=== PATIENT | female | born 1975 | race Caucasian/White ===

== ENCOUNTER 2016-10-05 19:48 | Emergency (ER) | payer OTHER ==
[~2016-10-05] VITALS: Ht 167.6 cm; Wt 122.5 kg
[2016-10-05] MEDS ORDERED: FIORCAP3 PO (20:06)
[2016-10-05] MEDS ORDERED: LORA10CA PO (20:06)
[2016-10-05] MEDS ORDERED: ASPI32ECTA PO (20:06)
[2016-10-05] MEDS ORDERED: VITA2000 PO (20:06)
[2016-10-05] MEDS ORDERED: DULO1CAP PO (20:06)
[2016-10-05] MEDS ORDERED: NS 1,000 ML IV ONE (21:15)
[2016-10-05] MEDS ORDERED: METOCLOPRAMIDE INJ 10MG/2ML VIAL (J2765) IV ONE (21:15)
--- NOTE | 2016-10-05 21:50 | REPUSA ---
CLINICAL INDICATION: Altered mental status COMPARISON: None TECHNIQUE: Multiple axial images were obtained without contrast from the skull vertex to C1. FINDINGS: No acute intracranial hemorrhage or evidence of acute territorial infarct. There are paravertebral wh ite matter lucencies slightly more prominent adjacent to the frontal horns and greater on right on ax ial CT 14. No suspicious intra-axial or extraction fluid collection, midline shift, or hydrocephalus. Posterior Fossa: Unremarkable. Paranasal sinuses and mastoid air cells are well pneumatized. Osseous structures, soft tissues, and, orbital compartments, and inner ear cavities appear unremarkab le. IMPRESSION: No acute intracranial hemorrhage or evidence of acute territorial infarct. There are periventricular white matter lucencies which may be secondary to prior infarcts or small vessel ischemia although wou ld be atypical given patient's age. Alternative etiologies may include sequelae of chronic migraines, hypertensive crises, or vasculitis. If there are persistent symptoms follow-up MRI brain without and with intravenous contrast may be helpful to exclude a more aggressive white matter process.
[2016-10-05 21:59] LABS: BASO # 0.1 K/mm3 (0.0-0.2); BASO % 0.6 % (0.0-1.0); EOS # 0.2 K/mm3 (0.0-0.50); EOS % 1.8 % (0.0-3.0); LARGE UNSTAINED CELL # 0.1 K/mm3 (0.0-0.4); LARGE UNSTAINED CELL % 1.1 % (0.0-4.0); LYMPH # 2.5 K/mm3 (1.5-4.5); LYMPH % 23.4 % (24.0-44.0); MEAN CORPUSCULAR HGB CONC 33.5 g/dl (32.0-36.5); MEAN CORPUSCULAR VOLUME 89.8 fl (80.0-96.0); MONO # 0.4 K/mm3 (0.0-0.8); MONO % 3.8 % (0.0-5.0); NEUTROPHILS % 69.3 % (36.0-66.0); PLATELET COUNT, AUTOMATED 282 k/mm3 (150-450); RED CELL DISTRIBUTION WIDTH 12.4 % (11.5-14.5); WHITE BLOOD COUNT 10.1 K/mm3 (4.0-10.0)
[2016-10-05 22:09] LABS: INR 0.96
[2016-10-05 22:23] LABS: ALBUMIN 4.1 GM/DL (3.2-5.2); ALBUMIN/GLOBULIN RATIO 1.11 (1.00-1.93); ALKALINE PHOSPHATASE 115 U/L (45-117); ALT/SGPT 18 U/L (12-78); ANION GAP 9 MEQ/L (8-16); AST/SGOT 9 U/L (15-37); BILIRUBIN,DIRECT < 0.1 MG/DL (0.0-0.2); BILIRUBIN,TOTAL 0.2 MG/DL (0.2-1.0); BLOOD UREA NITROGEN 19 MG/DL (7-18); CARBON DIOXIDE LEVEL 27 MEQ/L (21-32); CHLORIDE LEVEL 104 MEQ/L (98-107); CREATININE FOR GFR 0.85 MG/DL (0.55-1.02); GLOMERULAR FILTRATION RATE > 60.0 (>58); GLUCOSE, FASTING 110 MG/DL (70-105); POTASSIUM SERUM 4.1 MEQ/L (3.5-5.1); SODIUM LEVEL 140 MEQ/L (136-145); TOTAL PROTEIN 7.8 GM/DL (6.4-8.2)
[2016-10-05] MEDS ORDERED: REGL10TA6 PO (23:37)
[2016-10-05 23:43] VITALS: BP 140/89
== END 2016-10-05 23:56 | disposition home or self-care (01) ==
LOC: M ED 21:00
DX: G60.9 Hereditary and idiopathic neuropathy, unspecified (principal); R51 Headache; Z79.82 Long term (current) use of aspirin; Z79.899 Other long term (current) drug therapy; F32.9 Major depressive disorder, single episode, unspecified
CPT/HCPCS: 36415; 70450; 80048; 80076; 82550; 82553; 83605; 84443; 85025; 85610; 96374; 99282; J2765

== ENCOUNTER → 2016-12-21 | Outpatient (REF) | payer OTHER ==
[~2016-12-21] MED LIST: ASPI325T24 PO; DULO1CAP PO; FIORCAP3 PO; LORA10CA PO; REGL10TA6 PO; VITA2000 PO
[2016-12-21 13:37] LABS: BASO % 0.5 % (0.0-1.0); EOS # 0.1 K/mm3 (0.0-0.50); EOS % 1.3 % (0.0-3.0); LARGE UNSTAINED CELL # 0.1 K/mm3 (0.0-0.4); LARGE UNSTAINED CELL % 1.2 % (0.0-4.0); LYMPH # 2.1 K/mm3 (1.5-4.5); LYMPH % 24.7 % (24.0-44.0); MEAN CORPUSCULAR HEMOGLOBIN 30.7 pg (27.0-33.0); MEAN CORPUSCULAR HGB CONC 33.5 g/dl (32.0-36.5); MEAN CORPUSCULAR VOLUME 91.4 fl (80.0-96.0); MONO # 0.2 K/mm3 (0.0-0.8); MONO % 2.8 % (0.0-5.0); NEUTROPHILS # 5.7 K/mm3 (1.8-7.7); NEUTROPHILS % 69.5 % (36.0-66.0); PLATELET COUNT, AUTOMATED 229 k/mm3 (150-450); RED CELL DISTRIBUTION WIDTH 12.1 % (11.5-14.5); WHITE BLOOD COUNT 8.2 K/mm3 (4.0-10.0)
[2016-12-21 14:06] LABS: ALBUMIN 3.9 GM/DL (3.2-5.2); ALBUMIN/GLOBULIN RATIO 1.18 (1.00-1.93); ALKALINE PHOSPHATASE 90 U/L (45-117); ALT/SGPT 22 U/L (12-78); ANION GAP 5 MEQ/L (8-16); AST/SGOT 14 U/L (15-37); BILIRUBIN,TOTAL 0.3 MG/DL (0.2-1.0); BLOOD UREA NITROGEN 8 MG/DL (7-18); CALCIUM LEVEL 8.8 MG/DL (8.5-10.1); CARBON DIOXIDE LEVEL 27 MEQ/L (21-32); CHLORIDE LEVEL 106 MEQ/L (98-107); CREATININE FOR GFR 0.79 MG/DL (0.55-1.02); GLOMERULAR FILTRATION RATE > 60.0 (>58); GLUCOSE, FASTING 88 MG/DL (70-105); POTASSIUM SERUM 4.6 MEQ/L (3.5-5.1); SODIUM LEVEL 138 MEQ/L (136-145); TOTAL PROTEIN 7.2 GM/DL (6.4-8.2)
[2016-12-21 14:14] LABS: ERYTHROCYTE SEDIMENTATION RATE 16 mm/hr (0-20)
== END ==
LOC: M LABNEURO 13:20
PROVIDERS: ATTEND Psychiatry & Neurology Neurology
DX: R51 Headache (principal)

== ENCOUNTER → 2020-09-01 | Outpatient (CLI) | payer OTHER ==
[~2020-09-01] MED LIST changes: +ASPI-255 PO; -ASPI325T24 PO; -DULO1CAP PO; +DULO1CAP4 PO
[2020-09-01 11:29] LABS: BASO # 0.1 10^3/uL (0.0-0.2); BASO % 0.8 % (0.0-1.0); EOS # 0.1 10^3/uL (0.0-0.5); EOS % 1.7 % (0.0-3.0); HEMATOCRIT 41.4 % (36.0-47.0); HEMOGLOBIN 13.8 g/dl (12.0-15.5); LYMPH # 1.9 10^3/uL (1.5-5.0); LYMPH % 26.7 % (24.0-44.0); MEAN CORPUSCULAR HEMOGLOBIN 31.2 pg (27.0-33.0); MEAN CORPUSCULAR HGB CONC 33.3 g/dl (32.0-36.5); MEAN CORPUSCULAR VOLUME 93.7 fl (80.0-96.0); MONO # 0.4 10^3/uL (0.0-0.8); NEUTROPHILS # 4.7 10^3/uL (1.5-8.5); NEUTROPHILS % 65.5 % (36.0-66.0); PLATELET COUNT, AUTOMATED 257 10^3/uL (150-450); RED BLOOD COUNT 4.42 10^6/uL (4.00-5.40); WHITE BLOOD COUNT 7.2 10^3/uL (4.0-10.0)
[2020-09-01 12:07] LABS: ALBUMIN 4.1 GM/DL (3.2-5.2); ALT/SGPT 31 U/L (12-78); BILIRUBIN,TOTAL 0.3 MG/DL (0.2-1.0); BLOOD UREA NITROGEN 22 MG/DL (7-18); CALCIUM LEVEL 9.3 MG/DL (8.5-10.1); CARBON DIOXIDE LEVEL 27 MEQ/L (21-32); CHLORIDE LEVEL 106 MEQ/L (98-107); CREATININE FOR GFR 0.77 MG/DL (0.55-1.30); GLOMERULAR FILTRATION RATE > 60.0 (>58); GLUCOSE, FASTING 103 MG/DL (70-100); POTASSIUM SERUM 4.2 MEQ/L (3.5-5.1); SODIUM LEVEL 139 MEQ/L (136-145); THYROID STIMULATING HORMONE 0.934 uIU/ML (0.358-3.740); TOTAL PROTEIN 7.4 GM/DL (6.4-8.2)
[2020-09-01 12:14] LABS: TOTAL 25(OH) VITAMIN D 24.8 NG/ML (30.0-100.0)
[2020-09-01 12:16] LABS: FOLATE > 24.0 NG/ML (>5.4); VITAMIN B12 LEVEL 652 PG/ML (247-911)
== END ==
LOC: M LAB 10:20
PROVIDERS: ATTEND Physician Assistant Medical
DX: R51.9 Headache, unspecified (principal); R53.83 Other fatigue; R63.5 Abnormal weight gain

== ENCOUNTER 2020-10-05 19:44 | Emergency (ER) | payer OTHER ==
[~2020-10-05] VITALS: Ht 167.6 cm; Wt 126.1 kg
[2020-10-05] MEDS ORDERED: ZONI50CA11 PO (19:56)
[2020-10-05] MEDS ORDERED: DULO1CAP6 PO (19:56)
[2020-10-05] MEDS ORDERED: LR 1,000 ML IV ONE (20:40)
--- NOTE | 2020-10-05 20:42 | ECGEPIP ---
[facility] - ED Test Date: 2020-10-05 Pat Name: RHONDA TRUONG Department: Room: - Gender: Female Isotope Technician: Dylan CLIFFORD : 1975 Requested By: LUIS ALBERTO WALKER Order Number: [id number] Reading MD: Michael Fletcher Measurements Intervals [place] Rate: 95 P: 45 TX: 178 QRS: 22 QRSD: 68 T: 16 QT: 348 QTc: 437 Interpretive Statements Normal sinus rhythm INCOMPLETE RIGHT BUNDLE BRANCH BLOCK Nonspecific ST and T wave abnormality NO PRIORS FOR COMPARISON Electronically Signed on 10-05-2020 20:42:02 EDT by Michael Fletcher
--- NOTE | 2020-10-05 21:07 | REPVR ---
PROCEDURE INFORMATION: Exam: XR Chest Exam date and time: 10/05/2020 8:05 PM Age: 45 years old Clinical indication: Chest pain; Type not specified TECHNIQUE: Imaging protocol: XR of the chest. Views: 1 view. COMPARISON: No relevant prior studies available. FINDINGS: Lungs: Unremarkable. No consolidation. Pleural spaces: Unremarkable. No pleural effusion. No pneumothorax. Heart/Mediastinum: Unremarkable. No cardiomegaly. Bones/joints: Unremarkable. IMPRESSION: No acute findings. Electronically signed by: Deacon Obrien On 10/05/2020 21:06:55 PM
[2020-10-05] MEDS ORDERED: LORazepam 2 MG/ML VIAL IV STA (21:21)
[2020-10-05 21:22] LABS: ALBUMIN 3.9 GM/DL (3.2-5.2); ALT/SGPT 22 U/L (12-78); BILIRUBIN,DIRECT < 0.1 MG/DL (0.0-0.2); BILIRUBIN,TOTAL 0.1 MG/DL (0.2-1.0); BLOOD UREA NITROGEN 15 MG/DL (7-18); CALCIUM LEVEL 9.3 MG/DL (8.5-10.1); CARBON DIOXIDE LEVEL 25 MEQ/L (21-32); CHLORIDE LEVEL 105 MEQ/L (98-107); CK-MB VALUE MASS < 1.0 NG/ML (<3.6); CPK CREATINE PHOSPHOKINASE 87 U/L (26-192); CREATININE FOR GFR 0.81 MG/DL (0.55-1.30); FREE T4 0.85 NG/DL (0.76-1.46); GLOMERULAR FILTRATION RATE > 60.0 (>58); GLUCOSE, FASTING 113 MG/DL (70-100); LIPASE 138 U/L (73-393); MAGNESIUM LEVEL 1.8 MG/DL (1.8-2.4); MB/CK RELATIVE INDEX 1.15 (< OR =4); POTASSIUM SERUM 3.8 MEQ/L (3.5-5.1); SODIUM LEVEL 139 MEQ/L (136-145); TOTAL PROTEIN 7.5 GM/DL (6.4-8.2); TROPONIN I < 0.02 NG/ML (< 0.10)
[2020-10-05 21:48] LABS: BASO # 0.1 10^3/uL (0.0-0.2); BASO % 0.8 % (0.0-1.0); EOS # 0.2 10^3/uL (0.0-0.5); EOS % 1.8 % (0.0-3.0); HEMATOCRIT 41.6 % (36.0-47.0); HEMOGLOBIN 13.6 g/dl (12.0-15.5); LYMPH # 3.4 10^3/uL (1.5-5.0); LYMPH % 27.9 % (24.0-44.0); MEAN CORPUSCULAR HEMOGLOBIN 30.8 pg (27.0-33.0); MEAN CORPUSCULAR HGB CONC 32.7 g/dl (32.0-36.5); MEAN CORPUSCULAR VOLUME 94.1 fl (80.0-96.0); MONO # 0.5 10^3/uL (0.0-0.8); MONO % 4.3 % (2.0-8.0); NEUTROPHILS # 7.8 10^3/uL (1.5-8.5); NEUTROPHILS % 64.9 % (36.0-66.0); PLATELET COUNT, AUTOMATED 270 10^3/uL (150-450); RED BLOOD COUNT 4.42 10^6/uL (4.00-5.40)
--- NOTE | 2020-10-05 22:05 | REPVR ---
PROCEDURE INFORMATION: Exam: MR Head Without Contrast Exam date and time: 10/05/2020 8:46 PM Age: 45 years old Clinical indication: Dizziness; Additional info: Vertiginous dizziness/ history of cadasil TECHNIQUE: Imaging protocol: MR of the head without contrast. COMPARISON: CT Head without contrast 10/05/2016 9:16 PM FINDINGS: Brain: Multiple foci of T2 lengthening are demonstrated in the subcortical, periventricular and centrum semiovale white matter consistent with reported history of CADASIL. No evidence of acute ischemia. Cerebral ventricles: Normal. No ventriculomegaly. Bones/joints: Unremarkable. Paranasal sinuses: Normal as visualized. No acute sinusitis. Mastoid air cells: Normal as visualized. No mastoid effusion. Orbital cavity: Unremarkable. Soft tissues: Unremarkable. 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 No evidence of acute ischemia. Electronically signed by: Deacon Obrien On 10/05/2020 22:05:06 PM
[2020-10-05 23:02] LABS: APPEARANCE, URINE HAZY (CLEAR); BACTERIA, URINE AUTO NEGATIVE (NEGATIVE); BILIRUBIN, URINE AUTO NEGATIVE (NEGATIVE); BLOOD, URINE BLOOD 2+ (NEGATIVE); COLOR, URINE YELLOW (YELLOW); GLUCOSE, URINE (UA) AUTO NEGATIVE (NEGATIVE); KETONE, URINE AUTO NEGATIVE (NEGATIVE); LEUKOCYTE ESTERASE, URINE AUTO TRACE (NEGATIVE); NITRITE, URINE AUTO POSITIVE (NEGATIVE); PROTEIN, URINE AUTO NEGATIVE (NEGATIVE); RBC, URINE AUTO 2 /HPF (0-3); SPECIFIC GRAVITY URINE AUTO 1.021 (1.002-1.035); SQUAMOUS EPITHELIAL CELL UR AU 4 /HPF (0-6); UROBILINOGEN, URINE AUTO 0.2 mg/dL (0.0-2.0); WBC, URINE AUTO 8 /HPF (0-3)
--- NOTE | 2020-10-05 23:06 | REPVR ---
PROCEDURE INFORMATION: Exam: CT Head Without Contrast Exam date and time: 10/05/2020 10:33 PM Age: 45 years old Clinical indication: Dizziness; Additional info: Vertignous dizziness TECHNIQUE: Imaging protocol: Computed tomography of the head without contrast. Radiation optimization: All CT scans at this facility use at least one of these dose optimization techniques: automated exposure control; mA and/or kV adjustment per patient size (includes targeted exams where dose is matched to clinical indication); or iterative reconstruction. COMPARISON: MRI-Brain without Contrast 10/05/2020 9:37 PM FINDINGS: Brain: No acute intracranial hemorrhage, midline shift or intracranial mass effect. White matter disease is better visualized on MRI. Cerebral ventricles: No hydrocephalus. Bones/joints: Unremarkable. No acute fracture. Paranasal sinuses: Visualized sinuses are unremarkable. No fluid levels. Mastoid air cells: Visualized mastoid air cells are well aerated. Soft tissues: Unremarkable. IMPRESSION: No acute intracranial abnormality. Electronically signed by: Abdias Vasquez On 10/05/2020 23:05:49 PM
[2020-10-05] MEDS ORDERED: BACTRIM 160MG/800MG DS TAB PO ONE (23:25)
[2020-10-05 23:44] VITALS: BP 158/76
[2020-10-06 00:07] LABS: RSV AMPLIFICATION NEGATIVE (NEGATIVE)
[2020-10-06] MEDS ORDERED: BACT800T5 PO (00:13)
== END 2020-10-06 00:16 | disposition home or self-care (01) ==
LOC: M ED 19:44
DX: N39.0 Urinary tract infection, site not specified (principal); R00.2 Palpitations; I45.19 Other right bundle-branch block; R94.31 Abnormal electrocardiogram [ECG] [EKG]; Z79.82 Long term (current) use of aspirin; Z79.899 Other long term (current) drug therapy

== ENCOUNTER 2021-03-28 19:40 | Emergency (ER) | payer OTHER ==
[~2021-03-28] VITALS: Ht 167.6 cm; Wt 128.2 kg
[~2021-03-28 19:40] MED LIST changes: +BACT800T5 PO; +DULO1CAP6 PO; +ZONI50CA11 PO
--- OUTSIDE RECORDS SUMMARY | 2021-03-28 19:53 | CCD | Continuity of Care Document ---
Author Author Monika PLASENCIA P.A.-C. Organization Unknown Address [address] [place] [address] Phone [phone] Care Team Providers Care Quality Assurance Engineer Name Role Phone German Barragan M.D. AUTM [phone] Lashell Reeder D.O. AUTM [phone] Problems Active Problems Provider Date Headache Damari Blanco M.D. Onset: 04/24/2017 Social History Type Date Description Comments Sex Unknown Tobacco Use Start: Unknown Patient has never smoked Allergies, Adverse Reactions, Alerts Active Allergies Reaction Severity Comments Date NKDA 04/24/2017 Shrimp 05/26/2020 Medications Active Medications SIG Qnty Indications Ordering Provide r Date Duloxetine HCL 60mg Caps DR Part 1 by mouth every day 90becki Blanco M.D. 08/28/2020 Xanax 0.5mg Tablets 1 tab 15 mins prior to the scan; may repeat 30 minutes later if still anxious 2tabs Damari Blanco M.D. 06/02/2020 Zonisamide 50mg Capsules 3 tabs by mouth nightly 270caps Damari Blanco M.D. 03/04/2019 Immunizations Description No Information Available Vital Signs Date Vital Result Comment 2021 6:35am BP Systolic 140 mmHg BP Diastolic 90 mmHg Heart Rate 84 /min Respiratory Rate 20 /min Weight 280.00 lb 2021 6:34am BP Systolic 140 mmHg BP Diastolic 90 mmHg Heart Rate 84 /min Respiratory Rate 16 /min Results Test Acquired Date Facility Test Result H/L Range Note CBC With Differential 09/01/2020 [facility] White Blood Count 7.2 10 Normal 4.0-10.0 Red Blood Count 4.42 10 Normal 4.00-5.40 Hemoglobin 13.8 g/dL Normal 12.0-15.5 Hematocrit 41.4 % Normal 36.0-47.0 Mean Corpuscular Volume 93.7 fl Normal 80.0-96.0 Mean Corpuscular Hemoglobin 31.2 pg Normal 27.0-33.0 Mean Corpuscular HGB Conc 33.3 g/dL Normal 32.0-36.5 Red Cell Distribution Width 12.0 % Normal 11.5-14.5 Platelet Count, Automated 257 10 Normal 150-450 Neutrophils % 65.5 % Normal 36.0-66.0 Lymph % 26.7 % Normal 24.0-44.0 Giles % 5.0 % Normal 2.0-8.0 Eos % 1.7 % Normal 0.0-3.0 Baso % 0.8 % Normal 0.0-1.0 Immature Granulocyte % 0.3 % Normal 0-3.0 Nucleated Red Blood Cell % 0.0 % Normal 0-0 Neutrophils # 4.7 10 Normal 1.5-8.5 Lymph # 1.9 10 Normal 1.5-5.0 Giles # 0.4 10 Normal 0.0-0.8 Eos # 0.1 10 Normal 0.0-0.5 Baso # 0.1 10 Normal 0.0-0.2 Comprehensive Metabolic Profil 09/01/2020 [facility] Glucose, Fasting 103 mg/dL High 70-100 Blood Urea Nitrogen 22 mg/dL High 7-18 Creatinine For GFR 0.77 mg/dL Normal 0.55-1.30 Glomerular Filtration Rate > 60.0 Normal >58 1 Sodium Level 139 mEq/L Normal 136-145 Potassium Serum 4.2 mEq/L Normal 3.5-5.1 Chloride Level 106 mEq/L Normal 98-107 Carbon Dioxide Level 27 mEq/L Normal 21-32 Anion Gap 6 mEq/L Low 8-16 Calcium Level 9.3 mg/dL Normal 8.5-10.1 Ast/Sgot 20 U/L Normal 7-37 Alt/SGPT 31 U/L Normal 12-78 Alkaline Phosphatase 92 U/L Normal 45-117 Bilirubin,Total 0.3 mg/dL Normal 0.2-1.0 Total Protein 7.4 GM/DL Normal 6.4-8.2 Albumin 4.1 GM/DL Normal 3.2-5.2 Albumin/Globulin Ratio 1.2 Normal 1.2-2.2 Laboratory test finding 09/01/2020 [facility] Thyroid Stimulating Hormone 0.934 uIU/ML Normal 0.358-3.740 Vitamin B12 Level 652 pg/mL Normal 247-911 2 Folate > 24.0 NG/ML Normal >5.4 3 Total 25(Oh) Vitamin D 24.8 NG/ML Low 30.0-100.0 1 Units are mL/min/1.73 m2 Chronic Kidney Disease Staging per NKF: Stage I & II GFR >=60 Normal to Mildly Decreased Stage III GFR 30-59 Moderately Decreased Stage IV GFR 15-29 Severely Decreased Stage V GFR <15 Very Little GFR Left ESRD GFR <15 on OPTICAL MODEL MAKER AND TESTER 2 VITAMIN B12 NORMAL RANGE NORMAL 247 - 911 PG/ML INDETERMINATE 211 - 246 PG/ML DEFICIENT LESS THAN 211 PG/ML 3 FOLATE NORMAL RANGE NORMAL GREATER THAN 5.4 NG/ML INDETERMINATE 3.4-5.4 NG/ML DEFICIENT LESS THAN 3.4 NG/ML Procedures Date Code Description Status 01/23/2021 75490 MRI Brain W/O Contrast Completed 01/23/2021 24114 Magnetic Resonance Angiography N eddie W/O Contrast Materials Completed 01/23/2021 44434 Magnetic Resonance Angiogtaphy H ead W/O Contrast Material(S) Completed 2021 91439 Office/Outpatient Established Mo d MDM 30-39 Min Completed 08/28/2020 03203 Office/Outpatient Established Lo w MDM 20-29 Min Completed Medical Devices Description No Information Available Encounters Type Date Location Provider Dx Diagnosis Office Visit 2021 9:45a Main office - [place] Audra ibrahim, P.A.-C. 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 2021 G45.8 Other transient cere bral ischemic attacks and related syndromes Chuy Stock.A.-C. 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 2021 G43.709 Chronic migraine wit hout aura, not intractable, without status migrainosus Chuy Stock.A.-C. 2021 M79.7 Fibromyalgia Chuy Stock.A.-C. 2021 R53.83 Other fatigue Chuy Stock.A.-C. 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 08/28/2020 I63.89 Other cerebral infarction Chuy Gresham.A.-C. 08/28/2020 G45.8 Other transient cere bral ischemic attacks and related syndromes Chuy Stock.A.-C. 08/28/2020 G43.709 Chronic migraine wit hout aura, not intractable, without status migrainosus Chuy Stock.A.-C. 08/28/2020 G47.51 Confusional arousals Byron AlvaradoAMoriah-C. 08/28/2020 G56.03 Carpal tunnel syndrome, bilatera l upper limbs Chuy Stock.A.-C. 08/28/2020 F32.89 Other specified depressive episo adan Chuy Stock.A.-C. 08/28/2020 R53.83 Other fatigue Chuy Stock.A.-C. 08/28/2020 M79.7 Fibromyalgia Audra Plasencia P.A.-C. Plan of Treatment Future Appointment(s):* 04/22/2021 11:45 am - Audra Plasencia P.A.-C. at Main office [facility]3] 2021 - Audra Plasencia P.A.-C.* I63.89 Other cerebral infarction* Comments:* She was advised to resume aspirin. Schedule MRI/MRA of the brain due to recent symptoms. Prescription for Xanax to use prior to MRI sent eRx. [employer] [facility] # [id number]. * G45.8 Other transient cerebral ischemic attacks and related syndromes* Comments:* Schedule MRI/MRA brain. Resume aspirin. 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 * G43.709 Chronic migraine without aura, not intractable, without status migrainosus* Comments:* Continue zonisamide. * M79.7 Fibromyalgia* Comments:* Continue Cymbalta. * R53.83 Other fatigue* Comments:* Repeat vitamin D level. Consider a sleep study. * Follow up:* 3 months Functional Status Description No Information Available Mental Status Description No Information Available Referrals Description No Information Available
--- OUTSIDE RECORDS SUMMARY | 2021-03-28 19:53 | CCD | Continuity of Care Document ---
Author Author Monika VICTORIA Organization Unknown Address [address] [place] [address] Phone [phone] Care Team Providers Care Getterer Name Role Phone German Barragan M.D. AUTM Lashell Reeder D.O. AUTM [phone] Problems Active Problems Provider Date Headache Damari Blanco M.D. Onset: 04/24/2017 Social History Type Date Description Comments Sex Unknown Tobacco Use Start: Unknown Patient has never smoked Allergies, Adverse Reactions, Alerts Active Allergies Reaction Severity Comments Date NKDA 04/24/2017 Shrimp 05/26/2020 Medications Active Medications SIG Qnty Indications Ordering Provide r Date Duloxetine HCL 60mg Caps DR Bettina 1 by mouth every day 90becki Blanco M.D. 08/28/2020 Xanax 0.5mg Tablets 1 tab 15 mins prior to the scan; may repeat 30 minutes later if still anxious 2tabs Damari Blanco M.D. 06/02/2020 Zonisamide 50mg Capsules 3 tabs by mouth nightly 270becki Blanco M.D. 03/04/2019 Immunizations Description No Information [...] H/L Range Note CBC With Differential 09/01/2020 [facility] White Blood Count 7.2 10 Normal 4.0-10.0 [...] 36.0-66.0 Lymph % 26.7 % Normal 24.0-44.0 [place] % 5.0 % Normal 2.0-8.0 Eos % 1.7 % Normal 0.0-3.0 Baso % 0.8 % Normal 0.0-1.0 Immature Granulocyte % 0.3 % Normal 0-3.0 Nucleated Red Blood Cell % 0.0 % Normal 0-0 Neutrophils # 4.7 10 Normal 1.5-8.5 Lymph # 1.9 10 Normal 1.5-5.0 [place] # 0.4 10 Normal 0.0-0.8 Eos # 0.1 10 Normal 0.0-0.5 Baso # 0.1 10 Normal 0.0-0.2 Comprehensive Metabolic Profil 09/01/2020 [facility] Glucose, Fasting 103 mg/dL High 70-100 Blood [...] 1.2 Normal 1.2-2.2 Laboratory test finding 09/01/2020 [facility] Thyroid Stimulating Hormone 0.934 uIU/ML Normal 0.358-3.740 [...] Little GFR Left ESRD GFR <15 on [employer] OFFICER 2 VITAMIN B12 NORMAL RANGE NORMAL 247 - 911 PG/ML INDETERMINATE 211 - 246 PG/ML DEFICIENT LESS THAN 211 PG/ML 3 FOLATE NORMAL RANGE NORMAL GREATER THAN 5.4 NG/ML INDETERMINATE 3.4-5.4 NG/ML DEFICIENT LESS THAN 3.4 NG/ML Procedures Date Code Description Status 01/23/2021 21899 MRI Brain W/O Contrast Completed 01/23/2021 32155 MRI Brain W/O Contrast Completed 01/23/2021 44360 Magnetic Resonance Angiography N eddie W/O Contrast Materials Completed 01/23/2021 15859 Magnetic Resonance Angiography N eddie W/O Contrast Materials Completed 01/23/2021 63647 Magnetic Resonance Angiogtaphy H ead W/O Contrast Material(S) Completed 01/23/2021 45793 Magnetic Resonance Angiogtaphy H ead W/O Contrast Material(S) Completed 2021 71484 Office/Outpatient Established Mo d MDM 30-39 Min Completed 08/28/2020 16315 Office/Outpatient Established Lo w MDM 20-29 Min Completed Medical Devices Description No Information Available Encounters Type Date Location Provider Dx Diagnosis Office Visit 2021 9:45a Main office - [place] Audra ibrahim P.A.-C. 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 I67.850 Cereb autosom dom artopath w subcort [...] Description Provider 01/23/2021 I63.89 Other cerebral infarction Daniela lBanco M.D. 01/23/2021 I63.89 Other cerebral infarction MRI 01/23/2021 G45.8 Other transient cere bral ischemic attacks and related syndromes Daniela Blanco M.D. 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 2021 G45.8 Other transient cere bral ischemic attacks and related syndromes Chuy Stock.A.-C. 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 2021 G43.709 Chronic migraine wit hout aura, not intractable, without status migrainosus Chuy Stock.A.-C. 2021 M79.7 Fibromyalgia Ramírez Stock-C. 2021 R53.83 Other fatigue Chuy Stock.A.-C. 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 08/28/2020 G45.8 Other transient cere bral ischemic attacks and related syndromes Garland StockCMoriah 08/28/2020 G43.709 Chronic migraine wit hout aura, not intractable, without status migrainosus Byron StockAMoriah-CMoriah 08/28/2020 G47.51 Confusional arousals Byron AlvaradoAMoriah-CMoriah 08/28/2020 G56.03 Carpal tunnel syndrome, bilatera l upper limbs Byron StockAMoriah-CMoriah 08/28/2020 F32.89 Other specified depressive episo adan Ramírez Stock-Dylan 08/28/2020 R53.83 Other fatigue Byron StockA.-CMoriah 08/28/2020 M79.7 Fibromyalgia Audra Plasencia P.A.-C. Plan of Treatment Future Appointment(s):* 04/22/2021 11:45 am - Audra Plasencia P.A.-C. at Main [facility] 2021 - Audra Plasencia P.A.-C.* I63.89 Other cerebral infarction* Comments:* She was advised to resume aspirin. Schedule MRI/MRA of the brain due to recent symptoms. Prescription for Xanax to use prior to MRI sent eRx. [facility] # [id number]. * G45.8 Other transient cerebral ischemic attacks [...] Mental Status Description No Information Available Referrals Refer to Reason for Referral Status Appt Date Daniela Blanco M.D. Created [facility] [address] [place] [address] [phone] Daniela Blanco M.D. Created [facility] [address] [place] [address] [phone] Daniela Blanco M.D. Created [facility] [address] [place] [address] [phone]
--- OUTSIDE RECORDS SUMMARY | 2021-03-28 19:53 | CCD | Continuity of Care Document ---
Author Author Monika PLASENCIA P.A.-C. Organization Unknown Address [address] [place] [address] Phone [phone] Care Team Providers Care Visitor Services Representative Name Role Phone German Barragan M.D. AUTM [phone] Lashell Reeder D.O. AUTM [phone] Problems Active Problems Provider Date Headache Damari [...] Available Vital Signs Date Vital Result Comment 02/14/2020 10:32am BP Systolic 118 mmHg BP Diastolic 70 mmHg Heart Rate 68 /min Respiratory Rate 16 /min 08/07/2019 6:26am BP Systolic 130 mmHg BP Diastolic 80 mmHg Heart Rate 72 /min Respiratory Rate 16 /min Results Test Acquired Date Facility Test Result H/L Range Note CBC With Differential 09/01/2020 [facility] White Blood Count 7.2 10 Normal 4.0-10.0 [...] 36.0-66.0 Lymph % 26.7 % Normal 24.0-44.0 [place] % 5.0 % Normal 2.0-8.0 Eos % 1.7 % Normal 0.0-3.0 Baso % 0.8 % Normal 0.0-1.0 Immature Granulocyte % 0.3 % Normal 0-3.0 Nucleated Red Blood Cell % 0.0 % Normal 0-0 Neutrophils # 4.7 10 Normal 1.5-8.5 Lymph # 1.9 10 Normal 1.5-5.0 [place] # 0.4 10 Normal 0.0-0.8 Eos # 0.1 10 Normal 0.0-0.5 Baso # 0.1 10 Normal 0.0-0.2 Comprehensive Metabolic Profil 09/01/2020 [facility] Glucose, Fasting 103 mg/dL High 70-100 Blood [...] 1.2 Normal 1.2-2.2 Laboratory test finding 09/01/2020 [facility] Thyroid Stimulating Hormone 0.934 uIU/ML Normal 0.358-3.740 [...] Little GFR Left ESRD GFR <15 on PARTS COUNTERPERSON 2 VITAMIN B12 NORMAL RANGE NORMAL 247 - 911 PG/ML INDETERMINATE 211 - 246 PG/ML DEFICIENT LESS THAN 211 PG/ML 3 FOLATE NORMAL RANGE NORMAL GREATER THAN 5.4 NG/ML INDETERMINATE 3.4-5.4 NG/ML DEFICIENT LESS THAN 3.4 NG/ML Procedures Date Code Description Status 08/28/2020 88487 Office/Outpatient Established Lo w MDM 20-29 Min Completed Medical Devices Description No Information Available Encounters Type Date Location Provider Dx Diagnosis Office Visit 08/28/2020 11:30a Main office - [place] Byron RossA.OpalC. I67.850 Cereb autosom dom artopath w subcort inf arcts & leukoenceph I63.89 Other cerebral infarction G45.8 Oth transient cerebral ische kaylin attacks and related synd G43.709 Chronic migraine w/o aura, n ot intractable, w/o stat migr G47.51 Confusional arousals G56.03 Carpal tunnel syndrome, bila teral upper limbs F32.89 Other specified depressive e pisodes R53.83 Other fatigue M79.7 Fibromyalgia Assessments Date Code Description Provider 2021 I63.89 Other cerebral infarction Byron GreshamA.-CMoriah 2021 G45.8 Other transient cere bral ischemic attacks and related syndromes Byron StockA.Kellie 2021 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 2021 G43.709 Chronic migraine wit hout aura, not intractable, without status migrainosus Audra Plasencia P.A.-C. 2021 M79.7 Fibromyalgia Audra Plasencia P.A.-C. 2021 R53.83 Other fatigue Audra Plasencia P.A.-C. 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 08/28/2020 I63.89 Other cerebral infarction Audra Plasencia P.A.-C. 08/28/2020 G45.8 Other transient cere bral ischemic attacks and related syndromes Audra Plasencia P.A.-C. 08/28/2020 G43.709 Chronic migraine wit hout aura, not intractable, without status migrainosus Audra Plasencia P.A.-C. 08/28/2020 G47.51 Confusional arousals Audra valencia P.A.-C. 08/28/2020 G56.03 Carpal tunnel syndrome, bilatera l upper limbs Audra Plasencia P.A.-C. 08/28/2020 F32.89 Other specified depressive episo adan Audra Plasencia P.A.-C. 08/28/2020 R53.83 Other fatigue uAdra Plasencia P.A.-C. 08/28/2020 M79.7 Fibromyalgia Audra Plasencia P.A.-CMoriah Plan of Treatment No Information Available Functional Status Description No Information Available Mental Status Description No Information Available Referrals Description No Information Available
--- OUTSIDE RECORDS SUMMARY | 2021-03-28 19:53 | CCD | Continuity of Care Document ---
Author Author Monika VICTORIA Organization Unknown Address [address] [place] [address] Phone [phone] Care Team Providers Care Site Reliability Engineer Name Role Phone German Barragan M.D. AUTM [phone] Lashell Reeder D.O. AUTM [phone] Problems Active Problems Provider Date Headache Damari [...] 36.0-66.0 Lymph % 26.7 % Normal 24.0-44.0 [place] % 5.0 % Normal 2.0-8.0 Eos % 1.7 % Normal 0.0-3.0 Baso % 0.8 % Normal 0.0-1.0 Immature Granulocyte % 0.3 % Normal 0-3.0 Nucleated Red Blood Cell % 0.0 % Normal 0-0 Neutrophils # 4.7 10 Normal 1.5-8.5 Lymph # 1.9 10 Normal 1.5-5.0 [place] # 0.4 10 Normal 0.0-0.8 Eos # [...] 1.2 Normal 1.2-2.2 Laboratory test finding 09/01/2020 [place] Thyroid Stimulating Hormone 0.934 uIU/ML Normal 0.358-3.740 [...] Little GFR Left ESRD GFR <15 on TEAM LEADER 2 VITAMIN B12 NORMAL RANGE NORMAL 247 - 911 PG/ML INDETERMINATE 211 - 246 PG/ML DEFICIENT LESS THAN 211 PG/ML 3 FOLATE NORMAL RANGE NORMAL GREATER THAN 5.4 NG/ML INDETERMINATE 3.4-5.4 NG/ML DEFICIENT LESS THAN 3.4 NG/ML Procedures Date Code Description Status 01/23/2021 52638 MRI Brain W/O Contrast Completed 01/23/2021 93161 Magnetic Resonance Angiography N eddie W/O Contrast Materials Completed 01/23/2021 63179 Magnetic Resonance Angiogtaphy H ead W/O Contrast Material(S) Completed 2021 64025 Office/Outpatient Established Mo d MDM 30-39 Min Completed 08/28/2020 51890 Office/Outpatient Established Lo w MDM 20-29 Min Completed Medical Devices Description No Information Available Encounters Type Date Location Provider Dx Diagnosis Office Visit 2021 9:45a Main office - [place] Audra ibrahim, P.A.-C. 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 I67.850 Cereb autosom dom [...] bral ischemic attacks and related syndromes Byron StockAMoriah-C. 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 2021 G43.709 Chronic migraine wit hout aura, not intractable, without status migrainosus Chuy Stock.A.-C. 2021 M79.7 Fibromyalgia Byron StockAMoriah-C. 2021 R53.83 Other fatigue Chuy Stock.A.-C. 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 08/28/2020 I63.89 Other cerebral infarction Chuy Gresham.A.-C. 08/28/2020 G45.8 Other transient cere bral ischemic attacks and related syndromes Chuy Stock.A.-C. 08/28/2020 G43.709 Chronic migraine wit hout aura, not intractable, without status migrainosus Chuy Stock.A.-C. 08/28/2020 G47.51 Confusional arousals Byron AlvaradoAMoriah-C. 08/28/2020 G56.03 Carpal tunnel syndrome, bilatera l upper limbs Chuy Stock.A.-C. 08/28/2020 F32.89 Other specified depressive episo adan Ramírez Stock-C. 08/28/2020 R53.83 Other fatigue Ramírez Stock-CMoriah 08/28/2020 M79.7 Fibromyalgia Gar[place] StockCMoriah Plan of Treatment Future Appointment(s):* 04/22/2021 11:45 am - Audra Plasencia P.A.-C. at Main office - [place] 2021 - Audra Plasencia P.A.-C.* I63.89 Other cerebral infarction* Comments:* She was advised to resume aspirin. Schedule MRI/MRA of the brain due to recent symptoms. Prescription for Xanax to use prior to MRI sent eRx. [facility] # [id number]. * G45.8 Other transient cerebral ischemic attacks [...]
--- OUTSIDE RECORDS SUMMARY | 2021-03-28 19:53 | CCD ---
Author Author [facility] Organization [facility] Address Unknown Phone Unavailable Care Team Providers Care Director Food And Beverage Name Role Phone Hadian, Bib Unavailable Unavailable Hadian, Bib Unavailable Unavailable Hadian, Bib Unavailable Unavailable Hadian, Bib Unavailable Unavailable Hadian, Bib Unavailable Unavailable Hadian, Bib Unavailable Unavailable Hadian, Bib Unavailable Unavailable Hadian, Bib Unavailable Unavailable Hadian, Bib Unavailable Unavailable Hadian, Bib Unavailable Unavailable Hadian, Bib Unavailable Unavailable Hadian, Bib Unavailable Unavailable Hadian, Bib Unavailable Unavailable Hadian, Bib Unavailable Unavailable Hadian, Bib Unavailable Unavailable Hadian, Bib Unavailable Unavailable Hadian, Bib Unavailable Unavailable Hadian, Bib Unavailable Unavailable Hadian, Bib Unavailable Unavailable Hadian, Bib Unavailable Unavailable Hadian, Bib Unavailable Unavailable Hadian, Bib Unavailable Unavailable Hadian, Bib Unavailable Unavailable Hadian, Bib Unavailable Unavailable Hadian, Bib Unavailable Unavailable Hadian, Bib Unavailable Unavailable Hadian, Bib Unavailable Unavailable Hadian, Bib Unavailable Unavailable Hadian, Bib Unavailable Unavailable Hadian, Bib Unavailable Unavailable Hadian, Bib Unavailable Unavailable Hadian, Bib Unavailable Unavailable Hadian, Bib Unavailable Unavailable Hadian, Bib Unavailable Unavailable Hadian, Bib Unavailable Unavailable Hadian, Bib Unavailable Unavailable Hadian, Bib Unavailable Unavailable Hadian, Bib Unavailable Unavailable Hadian, Bib Unavailable Unavailable Hadian, Bib Unavailable Unavailable Hadian, Bib Unavailable Unavailable Hadian, Bib Unavailable Unavailable Trickey, J Audra PA Unavailable Unavailable Trickey, J Audra PA Unavailable Unavailable Trickey, J Audra PA Unavailable Unavailable Trickey, J Audra PA Unavailable Unavailable Trickey, J Audra PA Unavailable Unavailable Trickey, J Audra PA Unavailable Unavailable Trickey, J Audra PA Unavailable Unavailable Trickey, J Audra PA Unavailable Unavailable Trickey, J Audra PA Unavailable Unavailable Trickey, J Audra PA Unavailable Unavailable Trickey, J Audra PA Unavailable Unavailable Trickey, J Audra PA Unavailable Unavailable Trickey, J Audra PA Unavailable Unavailable Trickey, J Audra PA Unavailable Unavailable Trickey, J Audra PA Unavailable Unavailable Trickey, J Audra PA Unavailable Unavailable Trickey, J Audra PA Unavailable Unavailable Trickey, J Audra PA Unavailable Unavailable Trickey, J Audra PA Unavailable Unavailable Trickey, J Audra PA Unavailable Unavailable Trickey, J Audra PA Unavailable Unavailable Trickey, J Audra PA Unavailable Unavailable Trickey, J Audra PA Unavailable Unavailable Trickey, J Audra PA Unavailable Unavailable Trickey, J Audra PA Unavailable Unavailable Trickey, J Audra PA Unavailable Unavailable Trickey, J Audra PA Unavailable Unavailable Trickey, J Audra PA Unavailable Unavailable Trickey, J Audra PA Unavailable Unavailable Trickey, J Audra PA Unavailable Unavailable Trickey, J Audra PA Unavailable Unavailable Trickey, J Audra PA Unavailable Unavailable Trickey, J Audra PA Unavailable Unavailable Trickey, J Audra PA Unavailable Unavailable Trickey, J Audra PA Unavailable Unavailable Trickey, J Audra PA Unavailable Unavailable Trickey, J Audra PA Unavailable Unavailable Trickey, J Audra PA Unavailable Unavailable Trickey, J Audra PA Unavailable Unavailable Trickey, J Audra PA Unavailable Unavailable Trickey, J Audra PA Unavailable Unavailable Trickey, J Audra PA Unavailable Unavailable Trickey, J Audra PA Unavailable Unavailable Trickey, J Audra PA Unavailable Unavailable Trickey, J Audra PA Unavailable Unavailable Trickey, J Audra PA Unavailable Unavailable Trickey, J Audra PA Unavailable Unavailable Trickey, J Audra PA Unavailable Unavailable Trickey, J Audra PA Unavailable Unavailable Grullon, L Markell MD Unavailable Unavailable Grullon, L Markell OSPINA Unavailable Unavailable Grullon, L Markell OSPINA Unavailable Unavailable Grullon, L Markell MD Unavailable Unavailable Grullon, L Markell MD Unavailable Unavailable Grullon, L Markell MD Unavailable Unavailable Grullon, L Markell OSPINA Unavailable Unavailable Grullon, L Markell OSPINA Unavailable Unavailable Grullon, L Markell OSPINA Unavailable Unavailable Grullon, L Markell MD Unavailable Unavailable Grullon, L Markell MD Unavailable Unavailable Grullon, L Markell MD Unavailable Unavailable Grullon, L Markell MD Unavailable Unavailable Grullon, L Markell MD Unavailable Unavailable Grullon, L Markell MD Unavailable Unavailable Grullon, L Markell MD Unavailable Unavailable Grullon, L Markell MD Unavailable Unavailable Grullon, L Markell MD Unavailable Unavailable Grullon, L Markell MD Unavailable Unavailable Grullon, L Markell MD Unavailable Unavailable Grullon, L Markell MD Unavailable Unavailable Grullon, L Markell MD Unavailable Unavailable Grullon, L Markell OSPINA Unavailable Unavailable Grullon, L Markell OSPINA Unavailable Unavailable Grullon, L Markell OSPINA Unavailable Unavailable Grullon, L Markell OSPINA Unavailable Unavailable Grullon, L Markell MD Unavailable Unavailable Grullon, L Markell MD Unavailable Unavailable Grullon, L Markell MD Unavailable Unavailable Grullon, L Markell MD Unavailable Unavailable Grullon, L Markell MD Unavailable Unavailable Grullon, L Markell OSPINA Unavailable Unavailable Grullon, L Markell OSPINA Unavailable Unavailable Grullon, L Markell OSPINA Unavailable Unavailable Grullon, L Markell OSPINA Unavailable Unavailable Grullon, L Markell OSPINA Unavailable Unavailable Grullon, L Markell OSPINA Unavailable Unavailable Grullon, L Markell OSPINA Unavailable Unavailable Grullon, L Markell OSPINA Unavailable Unavailable Grullon, L Markell OSPINA Unavailable Unavailable Grullon, L Markell OSPINA Unavailable Unavailable Grullon, L Markell OSPINA Unavailable Unavailable Grullon, L Markell OSPINA Unavailable Unavailable Grullon, L Markell OSPINA Unavailable Unavailable Grullon, L Markell OSPINA Unavailable Unavailable Grullon, L Markell OSPINA Unavailable Unavailable Grullon, L Markell OSPINA Unavailable Unavailable Grullon, L Markell OSPINA Unavailable Unavailable Grullon, L Markell OSPINA Unavailable Unavailable Grullon, L Markell OSPINA Unavailable Unavailable Re-disclosure Warning The records that you are about to access may contain information from federally-assisted alcohol or drug abuse programs. If such information is present, then the following federally mandated warning applies: This information has been disclosed to you from records protected by federal confidentiality rules (42 CFR part 2). The federal rules prohibit you from making any further disclosure of this information unless further disclosure is expressly permitted by the written consent of the person to whom it pertains or as otherwise permitted by 42 CFR part 2. A general authorization for the release of medical or other information is NOT sufficient for this purpose. The Federal rules restrict any use of the information to criminally investigate or prosecute any alcohol or drug abuse patient.The records that you are about to access may contain highly sensitive health information, the redisclosure of which is protected by Article 27-F of the [facility] Public Health law. If you continue you may have access to information: Regarding HIV / AIDS; Provided by facilities licensed or operated by the [facility] Office of Mental Health; or Provided by the [facility] Office for People With Developmental Disabilities. If such information is present, then the following [facility] mandated warning applies: This information has been disclosed to you from confidential records which are protected by state law. State law prohibits you from making any further disclosure of this information without the specific written consent of the person to whom it pertains, or as otherwise permitted by law. Any unauthorized further disclosure in violation of state law may result in a fine or intermediate sentence or both. A general authorization for the release of medical or other information is NOT sufficient authorization for further disc losure. Encounters Encounter Providers Location Date Indications Data Source(s ) Outpatient Attender: Audra SWEENEY [facility] n 2021 09:45:00 AM EDT [facility] ([facility]) Outpatient Attender: Audra SWEENEY [facility] n 08/28/2020 11:30:00 AM EDT [facility] ([facility]) Outpatient Attender: Bib Wang ED-LABPNP 1 11:46:00 AM EST - 06/22/2020 11:47:00 AM EST WELL SCREEN [facility] WELL SCREEN Patient discharged. Outpatient Attender: Audra SWEENEY [facility] n 05/25/2020 09:00:00 AM EST [facility] ([facility]) Outpatient Attender: Markell Grullon MD Physical Therapy 03/26/2020 0 8:00:00 AM EDT [facility] ([facility]) Outpatient Attender: Audra SWEENEY [facility] n 02/14/2020 08:30:00 AM EDT [facility] ([facility]) Immunizations Vaccine Date Status Description Data Source(s) COVID-19 VACCINE Pfizer 01/25/2021 12:00:00 AM EDT completed [facility] Vaccine Series Complete: YESThis Data wa s Submitted to [facility] Via [employer]. COVID-19 VACCINE Pfizer 01/04/2021 12:00:00 AM EDT completed [facility] Vaccine Series Complete: NOThis Data was Submitted to [facility] Via [employer]. Medications Medication Brand Name Start Date Product Form Dose Route Admi nistrative Instructions Pharmacy Instructions Status Indications Reaction Description Data Source(s) duloxetine 60 MG Delayed Release Oral Capsule Duloxetine HCL 08/28/2020 12:00:00 AM EDT ORAL active [facility] ([facility]) Alprazolam 0.5 MG Oral Tablet [Xanax] Xanax 06/02/2020 12:00:00 AM EST active [facility] Insurance Providers Payer name Policy type / Coverage type Policy ID Covered alliance party ID Covered alliance party's relationship to sandoval Policy Sandoval Plan Information MEDICAID M [id number] Self [id number] [facility] 1 [id number] 1 [id number] [facility] 1 1 MEDICAID [id number] S [id number] [facility] COMMUN[facility] PLAN [facility] [id number] SP [id number] [facility] COMMUNITY PLAN [facility] [id number] SP [id number] MEDICAID -O/[id number] MEDICAID -CLINIC [id number] [facility] PLAN [id number] 18 [id number] [facility] COMM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 Problems, Conditions, and Diagnoses No Information Surgeries/Procedures Procedure Description Date Indications Data Source(s) Magnetic Resonance Angiogtaphy Head W/O Contrast Material(S) 01/23/2021 12:00:00 AM EDT [facility] ([facility]) Magnetic Resonance Angiography Neck W/O Contrast Materials 01/23/2021 12:00:00 AM EDT [facility] ([facility] MRI BRAIN BRAIN STEM W/O CONTRAST MATERIAL 01/23/2021 12:00:00 AM EDT [facility] ([facility] Magnetic Resonance Angiogtaphy Head W/O Contrast Material(S) 01/23/2021 12:00:00 AM EDT [facility] ([facility] Magnetic Resonance Angiography Neck W/O Contrast Materials 01/23/2021 12:00:00 AM EDT [facility] ([facility] MRI BRAIN BRAIN STEM W/O CONTRAST MATERIAL 01/23/2021 12:00:00 AM EDT [facility] ([facility] ) OFFICE OUTPATIENT VISIT 25 MINUTES 2021 12:00:00 AM EDT [facility] ([facility] OFFICE OUTPATIENT VISIT 15 MINUTES 08/28/2020 12:00:00 AM EDT [facility] ([facility] ) ELECTROENCEPHALOGRAM W/REC AWAKE&ASLEEP 06/18/2020 12: 00:00 AM EST [facility] ([facility] ) ELECTROENCEPHALOGRAM W/REC AWAKE&ASLEEP 06/18/2020 12: 00:00 AM EST [facility] ([facility] ) MRI BRAIN BRAIN STEM W/O CONTRAST MATERIAL 06/03/2020 12:00:00 AM EST [facility] ([facility] ) THERAPEUTIC PX 1/> AREAS EACH 15 MIN EXERCISES 12:00:00 AM EST [facility] ([facility] THERAPEUTIC PX 1/> AREAS EACH 15 MIN EXERCISES 12:00:00 AM EST [facility] ([facility] ) THERAPEUTIC PX 1/> AREAS EACH 15 MIN EXERCISES 12:00:00 AM EST [facility] ([facility] ) Physical Therapy Eval - Low Complexity 04/14/2020 12:0 0:00 AM EST [facility] ([facility] ) RADEX SHOULDER COMPLETE MINIMUM 2 VIEWS 03/26/2020 12: 00:00 AM EDT [facility] ([facility] ) RADEX WRIST COMPLETE MINIMUM 3 VIEWS 03/26/2020 12:00: 00 AM EDT [facility] ([facility] ) Results ID Date Data Source [id number] 10/05/2020 09:15:00 PM EDT [facility] Name Value Range Interpretation Code Description Data Maile rce(s) Supporting Document(s) SARS coronavirus 2 RNA [Presence] in Res piratory specimen by MIREYA with probe detection NEGATIVE [facility] This lab was ordered by [facility] a nd reported by [facility]. ID Date Data Source [id number] 09/01/2020 10:49:00 AM EDT [facility] ([facility], ) Name Value Range Interpretation Code Description Data Maile rce(s) Supporting Document(s) Thyrotropin [Units/volume] in Serum or Plasma 0.934 uIU/ML 0.358-3.74 0 [facility] ([facility]) Cobalamin (Vitamin B12) [Mass/volume] in Serum or Plasma 652 pg/mL 2 47-911 [facility] ([facility]) VITAMIN B12 NORMAL RANGE NORMAL 247 - 911 PG/ML INDETERMINATE 211 - 246 PG/ML DEFICIENT LESS THAN 211 PG/ML Calcidiol [Mass/volume] in Serum or Plasma 24.8 ng/mL 30.0-100.0 [facility] ([facility]) Folate [Mass/volume] in Serum or Plasma Laboratory test result [facility] ([facility]) FOLATE NORMAL RANGE NORMAL GREATER THAN 5.4 NG/ML INDETERMINATE 3.4-5.4 NG/ML DEFICIENT LESS THAN 3.4 NG/ML ID Date Data Source [id number] 09/01/2020 10:49:00 AM EDT [facility] Name Value Range Interpretation Code Description Data Maile rce(s) Supporting Document(s) Glucose, Fasting 103 mg/dL 70-100 [facility] ([facility]) Blood Urea Nitrogen 22 mg/dL 7-18 [facility] ([facility]) Creatinine For GFR 0.77 mg/dL 0.55-1.30 [facility] ([facility]) Sodium Level 139 meq/L 136-145 [facility] ([facility]) Glomerular Filtration Rate Laboratory test result [facility] ([facility]) <content>Units are mL/min/1.73 m2</content>
<content></content>
<content>Chronic Kidney Disease Staging per NKF:</content>
<content></content>
<content>Stage I & II GFR >=60 Normal to Mildly Decreased</content>
<content>Stage III GFR 30- 59 Moderately Decreased</content>
<content>Stage IV GFR 15-29 Severely Decreased</content>
<content>Stage V GFR <15 Very Little GFR Left</content>
<content>ESRD GFR <15 on MOVE COORDINATOR</content>
<content></content> Chloride Level 106 meq/L 98-107 [facility] ([facility], ) Potassium Serum 4.2 meq/L 3.5-5.1 [facility] ([facility]) Carbon Dioxide Level 27 meq/L 21-32 [facility] ([facility]) Anion Gap 6 meq/L 8-16 [facility] ([facility]) Ast/Sgot 20 U/L 7-37 [facility] ([facility]) Calcium Level 9.3 mg/dL 8.5-10.1 [facility] ([facility], ) Alkaline Phosphatase 92 U/L 45-117 [facility] ([facility], ) Alt/SGPT 31 U/L 12-78 [facility] ([facility]) Bilirubin,Total 0.3 mg/dL 0.2-1.0 [facility] ([facility]) Total Protein 7.4 GM/DL 6.4-8.2 [facility] ([facility], ) Albumin 4.1 GM/DL 3.2-5.2 [facility] ([facility]) Albumin/Globulin Ratio 1.2 1.2-2.2 [facility] ([facility]) ID Date Data Source [id number] 09/01/2020 10:49:00 AM EDT [facility] ([facility] ) Name Value Range Interpretation Code Description Data Maile rce(s) Supporting Document(s) White Blood Count 7.2 10 4.0-10.0 [facility] ([facility], ) Red Blood Count 4.42 10 4.00-5.40 [facility] ([facility], ) Hemoglobin 13.8 g/dL 12.0-15.5 [facility] ([facility], ) Hematocrit 41.4 % 36.0-47.0 [facility] ([facility]) Mean Corpuscular Volume 93.7 fl 80.0-96.0 M [facility] ([facility]) Mean Corpuscular Hemoglobin 31.2 pg 27.0-33.0 [facility] ([facility]) Red Cell Distribution Width 12.0 % 11.5-14.5 [facility] ([facility]) Mean Corpuscular HGB Conc 33.3 g/dL 32.0-36.5 [facility] ([facility]) Platelet Count, Automated 257 10 150-450 [facility] ([facility]) Lymph % 26.7 % 24.0-44.0 [facility] ([facility]) Neutrophils % 65.5 % 36.0-66.0 [facility] ([facility]) Saunders % 5.0 % 2.0-8.0 [facility] ([facility]) Eos % 1.7 % 0.0-3.0 [facility] ([facility]) Baso % 0.8 % 0.0-1.0 [facility] ([facility]) Immature Granulocyte % 0.3 % 0-3.0 [facility] ([facility]) Neutrophils # 4.7 10 1.5-8.5 [facility] ([facility]) Nucleated Red Blood Cell % 0.0 % 0-0 [facility] ([facility]) Lymph # 1.9 10 1.5-5.0 [facility] ([facility]) Saunders # 0.4 10 0.0-0.8 [facility] ([facility]) Eos # 0.1 10 0.0-0.5 [facility] ([facility]) Baso # 0.1 10 0.0-0.2 [facility] ([facility]) ID Date Data Source [id number] 06/23/2020 08:44:00 AM EST [facility] Name Value Range Interpretation Code Description Data Maile rce(s) Supporting Document(s) Respiratory specimen severe acute respir atory syndrome coronavirus 2 (SARS-CoV-2) RNA Negative (qualifier value) [facility] This lab was ordered by [facility] and reported by . ID Date Data Source [id number] 06/23/2020 08:29:00 AM EST [facility] Name Value Range Interpretation Code Description Data Maile rce(s) Supporting Document(s) SARS-CoV-2 RNA INHOUSE Negative Normal (applies to non-n umeric results) [facility] THIS IS A [facility] REPORTABLE COMMUNICABLE DISEASE. Testing was performed using the [employer] COVID-19 MDx Assay. This test has been authorized by FDA under an (Emergency Use Authorization) EUA for use by authorized laboratories for individuals who are suspected of COVID-19 by their healthcare provider. This test is only authorized for the duration of the declaration that circumstances exist justifying the authorization of emergency use of in vitro diagnostic tests for detection and/or diagnosis of SARS-CoV-2. Methodology: Endpoint RT-PCR. Fact sheets for this EUA assay can be found at the following links: Providers: https://www.fda.gov/media/084079/download Patients : https://www.fda.gov/media/275507/download THIS IS A [facility] REPORTABLE COMMUNICABLE DISEASE Negative results do not preclude SARS-CoV-2 infection and should not be used as the sole basis for patient management decisions. Negative results must be combined with clinical observations,patient history, and epidemiological information. Procedure Social History No Information Vital Signs ID Date Data Source UNK Name Value Range Interpretation Code Description Data Source(s) Systolic blood pressure 140 mm[Hg] 140 mm[Hg] M [facility] ([facility] Diastolic blood pressure 90 mm[Hg] 90 mm[Hg] [facility] ([facility] Heart rate 84 /min 84 /min [facility] ([facility] Respiratory rate 20 /min 20 /min [facility] ( [facility] Body weight 280.00 [lb_av] 280.00 [lb_av] [facility] T ([facility] ) Respiratory rate 16 /min 16 /min [facility] ( [facility] ) Diastolic blood pressure 90 mm[Hg] 90 mm[Hg] [facility] ([facility] Systolic blood pressure 140 mm[Hg] 140 mm[Hg] M [facility] ([facility] ) Heart rate 84 /min 84 /min [facility] ([facility], ) Body temperature 96.6 [degF] 96.6 [degF] [facility] ([facility] Body weight 256.00 [lb_av] 256.00 [lb_av] [facility] T ([facility] ) Body height 66 [in_i] 66 [in_i] [facility] ([facility]) 5'6" Body mass index (BMI) [Ratio] 41.3 kg/m2 41.3 k g/m2 [facility] ([facility] ) Respiratory rate 16 /min 16 /min [facility] ( [facility] ) Systolic blood pressure 118 mm[Hg] 118 mm[Hg] [facility] ([facility] ) Diastolic blood pressure 70 mm[Hg] 70 mm[Hg] [facility] Heart rate 68 /min 68 /min [facility]
[2021-03-28 21:09] LABS: RSV AMPLIFICATION NEGATIVE (NEGATIVE)
--- OUTSIDE RECORDS SUMMARY | 2021-03-28 21:41 | CCD ---
Author Author [facility] Organization [facility] Address Unknown Phone Unavailable Care Team Providers Care Writer Producer Name Role Phone Hadian, Bib Unavailable Unavailable [...] Unavailable Unavailable Hadian, Bib Unavailable Unavailable Hadian, Ibb Unavailable Unavailable Hadian, Bib Unavailable Unavailable Hadian, [...] J Audra PA Unavailable Unavailable Trickey, J Aurda PA Unavailable Unavailable Trickey, J Audra PA [...] is protected by Article 27-F of the [facility] Public Health law. If you continue you may have access to information: Regarding HIV / AIDS; Provided by facilities licensed or operated by the [facility] Office of Mental Health; or Provided by the [facility] Office for People With Developmental Disabilities. If such information is present, then the following [facility] mandated warning applies: This information has been [...] law may result in a fine or correction sentence or both. A general authorization for the release of medical or other information is NOT sufficient authorization for further disc losure. Encounters Encounter Providers Location Date Indications Data Source(s ) Outpatient Attender: Audra SWEENEY [facility] n 2021 09:45:00 AM EDT [facility] ([facility] Outpatient Attender: Audra SWEENEY [facility] n 08/28/2020 11:30:00 AM EDT [facility] ([facility]) Outpatient Attender: Bib Wang ED-LABPNP 1 11:46:00 AM EST - 06/22/2020 11:47:00 AM EST WELL SCREEN [facility] WELL SCREEN Patient discharged. Outpatient Attender: Audra SWEENEY [facility] n 05/25/2020 09:00:00 AM EST [facility] ([facility]) Outpatient Attender: Markell Grullon MD Physical Therapy 03/26/2020 0 8:00:00 AM EDT [facility] ([facility]) Outpatient Attender: Audra SWEENEY [facility] n 02/14/2020 08:30:00 AM EDT [facility] ([facility]) Immunizations Vaccine Date Status Description Data Source(s) COVID-19 VACCINE Pfizer 01/25/2021 12:00:00 AM EDT completed [facility] Vaccine Series Complete: YESThis Data wa s Submitted to [facility] Via [facility]. COVID-19 VACCINE Pfizer 01/04/2021 12:00:00 AM EDT completed [facility] Vaccine Series Complete: NOThis Data was Submitted to [facility] Via [employer]. Medications Medication Brand Name Start Date Product Form Dose Route Admi nistrative Instructions Pharmacy Instructions Status Indications Reaction Description Data Source(s) duloxetine 60 MG Delayed Release Oral Capsule Duloxetine HCL 08/28/2020 12:00:00 AM EDT ORAL active [facility] ([facility]) Alprazolam 0.5 MG Oral Tablet [Xanax] Xanax 06/02/2020 12:00:00 AM EST active [facility] Insurance Providers Payer name Policy type / Coverage type Policy ID Covered constitution party ID Covered constitution party's relationship to sandoval Policy Sandoval Plan Information MEDICAID M [id number] Self [id number] [facility] COMUNITY PLAN 1 [id number] 1 [id number] [facility] COMUNITY PLAN 1 1 MEDICAID [id number] [facility] COMMUNITY PLAN [facility] [id number] SP [id number] [facility] COMMUNITY PLAN [facility] [id number] SP [id number] MEDICAID -O/P [id number] MEDICAID -CLINIC [id number] [facility] PLAN [id number] 18 [id number] [facility] COMMUNITY [facility] [id number] SP [id number] [facility] COMMUNITY [id number] S [id number] 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 Problems, Conditions, and Diagnoses No Information Surgeries/Procedures Procedure Description Date Indications Data Source(s) Magnetic Resonance Angiogtaphy Head W/O Contrast Material(S) 01/23/2021 12:00:00 AM EDT [facility] ([facility]) Magnetic Resonance Angiography Neck W/O Contrast Materials 01/23/2021 12:00:00 AM EDT [facility] ([facility] MRI BRAIN BRAIN STEM W/O CONTRAST MATERIAL 01/23/2021 12:00:00 AM EDT [facility] ([facility] Magnetic Resonance Angiogtaphy Head W/O Contrast Material(S) 01/23/2021 12:00:00 AM EDT [facility] ([facility] Magnetic Resonance Angiography Neck W/O Contrast Materials 01/23/2021 12:00:00 AM EDT [facility] ([facility] MRI BRAIN BRAIN STEM W/O CONTRAST MATERIAL 01/23/2021 12:00:00 AM EDT [facility] ([facility] ) OFFICE OUTPATIENT VISIT 25 MINUTES 2021 12:00:00 AM EDT [facility] ([facility] OFFICE OUTPATIENT VISIT 15 MINUTES 08/28/2020 12:00:00 AM EDT [facility] ([facility] ) ELECTROENCEPHALOGRAM W/REC AWAKE&ASLEEP 06/18/2020 12: 00:00 AM EST [facility] ([facility] ) ELECTROENCEPHALOGRAM W/REC AWAKE&ASLEEP 06/18/2020 12: 00:00 AM EST [facility] ([facility] ) MRI BRAIN BRAIN STEM W/O CONTRAST MATERIAL 06/03/2020 12:00:00 AM EST [facility] ([facility] ) THERAPEUTIC PX 1/> AREAS EACH 15 MIN EXERCISES 12:00:00 AM EST [facility] ([facility] THERAPEUTIC PX 1/> AREAS EACH 15 MIN EXERCISES 12:00:00 AM EST [facility] ([facility] ) THERAPEUTIC PX 1/> AREAS EACH 15 MIN EXERCISES 12:00:00 AM EST [facility] ([facility] ) Physical Therapy Eval - Low Complexity 04/14/2020 12:0 0:00 AM EST [facility] ([facility] ) RADEX SHOULDER COMPLETE MINIMUM 2 VIEWS 03/26/2020 12: 00:00 AM EDT [facility] ([facility] ) RADEX WRIST COMPLETE MINIMUM 3 VIEWS 03/26/2020 12:00: 00 AM EDT [facility] ([facility] ) Results ID Date Data Source [id number] 10/05/2020 09:15:00 PM EDT [facility] Name Value Range Interpretation Code Description Data Maile rce(s) Supporting Document(s) SARS coronavirus 2 RNA [Presence] in Res piratory specimen by MIREYA with probe detection NEGATIVE [facility] This lab was ordered by [facility] a nd reported by [facility]. ID Date Data Source [id number] 09/01/2020 10:49:00 AM EDT [facility] ([facility], ) Name Value Range Interpretation Code Description Data Maile rce(s) Supporting Document(s) Thyrotropin [Units/volume] in Serum or Plasma 0.934 uIU/ML 0.358-3.74 0 [facility] ([facility]) Cobalamin (Vitamin B12) [Mass/volume] in Serum or Plasma 652 pg/mL 2 47-911 [facility] ([facility]) VITAMIN B12 NORMAL RANGE NORMAL 247 - 911 PG/ML INDETERMINATE 211 - 246 PG/ML DEFICIENT LESS THAN 211 PG/ML Calcidiol [Mass/volume] in Serum or Plasma 24.8 ng/mL 30.0-100.0 [facility] ([facility]) Folate [Mass/volume] in Serum or Plasma Laboratory test result [facility] ([facility]) FOLATE NORMAL RANGE NORMAL GREATER THAN 5.4 NG/ML INDETERMINATE 3.4-5.4 NG/ML DEFICIENT LESS THAN 3.4 NG/ML ID Date Data Source [id number] 09/01/2020 10:49:00 AM EDT [facility] Name Value Range Interpretation Code Description Data Maile rce(s) Supporting Document(s) Glucose, Fasting 103 mg/dL 70-100 [facility] ([facility]) Blood Urea Nitrogen 22 mg/dL 7-18 [facility] ([facility]) Creatinine For GFR 0.77 mg/dL 0.55-1.30 [facility] ([facility]) Sodium Level 139 meq/L 136-145 [facility] ([facility]) Glomerular Filtration Rate Laboratory test result [facility] ([facility]) <content>Units are mL/min/1.73 m2</content>
<content></content>
<content>Chronic Kidney Disease Staging per NKF:</content>
<content></content>
<content>Stage I & II GFR >=60 Normal to Mildly Decreased</content>
<content>Stage III GFR 30- 59 Moderately Decreased</content>
<content>Stage IV GFR 15-29 Severely Decreased</content>
<content>Stage V GFR <15 Very Little GFR Left</content>
<content>ESRD GFR <15 on RODEO PERFORMER</content>
<content></content> Chloride Level 106 meq/L 98-107 [facility] ([facility], ) Potassium Serum 4.2 meq/L 3.5-5.1 [facility] ([facility]) Carbon Dioxide Level 27 meq/L 21-32 [facility] ([facility]) Anion Gap 6 meq/L 8-16 [facility] ([facility]) Ast/Sgot 20 U/L 7-37 [facility] ([facility]) Calcium Level 9.3 mg/dL 8.5-10.1 [facility] ([facility], ) Alkaline Phosphatase 92 U/L 45-117 [facility] ([facility], ) Alt/SGPT 31 U/L 12-78 [facility] ([facility]) Bilirubin,Total 0.3 mg/dL 0.2-1.0 [facility] ([facility]) Total Protein 7.4 GM/DL 6.4-8.2 [facility] ([facility], ) Albumin 4.1 GM/DL 3.2-5.2 [facility] ([facility]) Albumin/Globulin Ratio 1.2 1.2-2.2 [facility] ([facility]) ID Date Data Source [id number] 09/01/2020 10:49:00 AM EDT [facility] ([facility] ) Name Value Range Interpretation Code Description Data Maile rce(s) Supporting Document(s) White Blood Count 7.2 10 4.0-10.0 [facility] ([facility], ) Red Blood Count 4.42 10 4.00-5.40 [facility] ([facility], ) Hemoglobin 13.8 g/dL 12.0-15.5 [facility] ([facility], ) Hematocrit 41.4 % 36.0-47.0 [facility] ([facility]) Mean Corpuscular Volume 93.7 fl 80.0-96.0 M [facility] ([facility]) Mean Corpuscular Hemoglobin 31.2 pg 27.0-33.0 [facility] ([facility]) Red Cell Distribution Width 12.0 % 11.5-14.5 [facility] ([facility]) Mean Corpuscular HGB Conc 33.3 g/dL 32.0-36.5 [facility] ([facility]) Platelet Count, Automated 257 10 150-450 [facility] ([facility]) Lymph % 26.7 % 24.0-44.0 [facility] ([facility]) Neutrophils % 65.5 % 36.0-66.0 [facility] ([facility]) [place] % 5.0 % 2.0-8.0 [facility] ([facility]) Eos % 1.7 % 0.0-3.0 [facility] ([facility]) Baso % 0.8 % 0.0-1.0 [facility] ([facility]) Immature Granulocyte % 0.3 % 0-3.0 [facility] ([facility]) Neutrophils # 4.7 10 1.5-8.5 [facility] ([facility]) Nucleated Red Blood Cell % 0.0 % 0-0 [facility] ([facility]) Lymph # 1.9 10 1.5-5.0 [facility] ([facility]) [place] # 0.4 10 0.0-0.8 [facility] ([facility]) Eos # 0.1 10 0.0-0.5 [facility] ([facility]) Baso # 0.1 10 0.0-0.2 [facility] ([facility]) ID Date Data Source [id number] 06/23/2020 08:44:00 AM EST [facility] Name Value Range Interpretation Code Description Data Maile rce(s) Supporting Document(s) Respiratory specimen severe acute respir atory syndrome coronavirus 2 (SARS-CoV-2) RNA Negative (qualifier value) [facility] This lab was ordered by [facility] and reported by . ID Date Data Source [id number] 06/23/2020 08:29:00 AM EST [facility] Name Value Range Interpretation Code Description Data Maile rce(s) Supporting Document(s) SARS-CoV-2 RNA INHOUSE Negative Normal (applies to non-n umeric results) [facility] THIS IS A [facility] REPORTABLE COMMUNICABLE DISEASE. Testing was performed using the [employer] COVID-19 MDx Assay. This test has been [...] be found at the following links: Providers: https://www.fda.gov/media/056877/download Patients : https://www.fda.gov/media/139241/download THIS IS A [facility] REPORTABLE COMMUNICABLE DISEASE Negative results do not [...] pressure 140 mm[Hg] 140 mm[Hg] M [facility] ([facility] ) Diastolic blood pressure 90 mm[Hg] 90 mm[Hg] [facility] ([facility] Heart rate 84 /min 84 /min [facility] ([facility] ) Respiratory rate 20 /min 20 /min [facility] ( [facility] ) Body weight 280.00 [lb_av] 280.00 [lb_av] [facility] T ([facility], ) Diastolic blood pressure 90 mm[Hg] 90 mm[Hg] [facility] ([facility] ) Respiratory rate 16 /min 16 /min [facility] ( [facility] ) Systolic blood pressure 140 mm[Hg] 140 mm[Hg] M [facility] ([facility] ) Heart rate 84 /min 84 /min [facility] ([facility], ) Body height 66 [in_i] 66 [in_i] [facility] 5'6" Body mass index (BMI) [Ratio] 41.3 kg/m2 41.3 k g/m2 [facility] Body temperature 96.6 [degF] 96.6 [degF] [facility] ([facility]) Body weight 256.00 [lb_av] 256.00 [lb_av] [facility] T ([facility] ) Respiratory rate 16 /min 16 /min [facility] ( [facility] ) Systolic blood pressure 118 mm[Hg] 118 mm[Hg] [facility] Diastolic blood pressure 70 mm[Hg] 70 mm[Hg] [facility] Heart rate 68 /min 68 /min [facility] ([facility] )
[2021-03-28 21:45] VITALS: BP 171/74
== END 2021-03-28 22:09 | disposition home or self-care (01) ==
LOC: M ED 19:40
DX: B34.9 Viral infection, unspecified (principal); R50.9 Fever, unspecified

== ENCOUNTER 2021-08-21 20:42 | Emergency (ER) | payer OTHER ==
[~2021-08-21] VITALS: Ht 167.6 cm; Wt 128.8 kg
[2021-08-21 20:42] VITALS: BP 144/95
[2021-08-21] MEDS ORDERED: CLAR10CA3 PO (20:56)
== END 2021-08-21 22:45 | disposition left against medical advice (07) ==
LOC: M ED 20:42
DX: Z53.21 Procedure and treatment not carried out due to patient leaving prior to being seen by health care provider (principal)

== ENCOUNTER 2021-12-11 16:12 | Emergency (ER) | payer OTHER ==
[~2021-12-11] VITALS: Ht 167.6 cm; Wt 120.5 kg
[~2021-12-11 16:12] MED LIST changes: +CLAR10CA3 PO
[2021-12-11] MEDS ORDERED: KETOROLAC 30 MG/ML 1ML VIAL IM ONE (18:10)
[2021-12-11] MEDS ORDERED: CYCL5TAB PO (20:16)
[2021-12-11] MEDS ORDERED: IBUP-1022 PO (20:16)
[2021-12-11 20:37] VITALS: BP 170/83
== END 2021-12-11 20:39 | disposition home or self-care (01) ==
LOC: M ED 16:12
DX: M47.816 Spondylosis without myelopathy or radiculopathy, lumbar region (principal); M47.817 Spondylosis without myelopathy or radiculopathy, lumbosacral region; M54.50 Low back pain, unspecified; I10 Essential (primary) hypertension; Z86.73 Personal history of transient ischemic attack (TIA), and cerebral infarction without residual deficits; Z79.899 Other long term (current) drug therapy
CPT/HCPCS: 72110; 96372; 99283; J1885

== ENCOUNTER → 2022-01-06 | Outpatient (REF) | payer OTHER ==
[~2022-01-06] MED LIST changes: +CYCL5TAB PO; +IBUP-1022 PO
== END ==
LOC: M SFHCDERM 16:24
PROVIDERS: ATTEND Nurse Practitioner Family
DX: D23.61 Other benign neoplasm of skin of right upper limb, including shoulder (principal)

== ENCOUNTER 2023-12-01 15:50 | Emergency (ER) | payer OTHER ==
[~2023-12-01] VITALS: Ht 170.2 cm; Wt 129.8 kg
[2023-12-01 20:50] LABS: BASO # 0.1 10^3/uL (0.0-0.2); BASO % 0.8 % (0.0-1.0); EOS # 0.2 10^3/uL (0.0-0.5); EOS % 1.7 % (0.0-3.0); HEMATOCRIT 41.3 % (36.0-47.0); HEMOGLOBIN 13.8 g/dl (12.0-15.5); LYMPH # 3.2 10^3/uL (1.5-5.0); LYMPH % 24.6 % (24.0-44.0); MEAN CORPUSCULAR HEMOGLOBIN 30.9 pg (27.0-33.0); MEAN CORPUSCULAR HGB CONC 33.4 g/dl (32.0-36.5); MEAN CORPUSCULAR VOLUME 92.6 fl (80.0-96.0); MONO # 0.5 10^3/uL (0.0-0.8); MONO % 3.8 % (2.0-8.0); NEUTROPHILS # 8.9 10^3/uL (1.5-8.5); NEUTROPHILS % 68.8 % (36.0-66.0); PLATELET COUNT, AUTOMATED 312 10^3/uL (150-450); RED BLOOD COUNT 4.46 10^6/uL (4.00-5.40); WHITE BLOOD COUNT 12.9 10^3/uL (4.0-10.0)
[2023-12-01 21:31] LABS: HCG, SERUM QUALITATIVE NEGATIVE (NEGATIVE)
[2023-12-01 21:32] LABS: CK-MB VALUE MASS < 1.0 NG/ML (<3.6)
[2023-12-01 21:34] LABS: BLOOD UREA NITROGEN 16 MG/DL (9-23); CALCIUM LEVEL 9.7 MG/DL (8.5-10.1); CARBON DIOXIDE LEVEL 27 MMOL/L (20-31); CHLORIDE LEVEL 106 MMOL/L (98-107); CREATININE FOR GFR 0.83 MG/DL (0.55-1.30); GLOMERULAR FILTRATION RATE > 60.0 (>58); GLUCOSE, FASTING 97 MG/DL (60-100); POTASSIUM SERUM 4.3 MMOL/L (3.5-5.1); SODIUM LEVEL 138 MMOL/L (136-145)
[2023-12-01 21:36] LABS: THYROID STIMULATING HORMONE 2.268 uIU/ML (0.55-4.78); THYROXINE (T4) 8.3 UG/DL (4.5-10.9)
[2023-12-01 21:52] LABS: APPEARANCE, URINE HAZY (CLEAR); BACTERIA, URINE AUTO 1+ (NEGATIVE); BILIRUBIN, URINE AUTO NEGATIVE (NEGATIVE); BLOOD, URINE BLOOD NEGATIVE (NEGATIVE); COLOR, URINE YELLOW (YELLOW); GLUCOSE, URINE (UA) AUTO NEGATIVE (NEGATIVE); KETONE, URINE AUTO NEGATIVE (NEGATIVE); LEUKOCYTE ESTERASE, URINE AUTO TRACE (NEGATIVE); MUCUS, URINE SMALL (NEGATIVE); NITRITE, URINE AUTO NEGATIVE (NEGATIVE); PROTEIN, URINE AUTO 1+ mg/dL (NEGATIVE); RBC, URINE AUTO 2 /HPF (0-3); SPECIFIC GRAVITY URINE AUTO 1.025 (1.002-1.035); SQUAMOUS EPITHELIAL CELL UR AU 6 /HPF (0-6); WBC, URINE AUTO 3 /HPF (0-3)
[2023-12-01 21:59] LABS: CPK CREATINE PHOSPHOKINASE 78 U/L (34-145); MB/CK RELATIVE INDEX 1.28 (< OR =4)
[2023-12-01 22:15] LABS: FREE THYROXINE INDEX 2.5 % (1.3-4.8); T UPTAKE 29.7 % (22.5-37.0)
[2023-12-01 23:04] VITALS: BP 158/82; TEMP 98.7; O2SAT 98
== END 2023-12-01 23:07 | disposition home or self-care (01) ==
LOC: M ED 15:50
DX: H81.4 Vertigo of central origin (principal); R51.9 Headache, unspecified; I45.81 Long QT syndrome; I49.3 Ventricular premature depolarization; I10 Essential (primary) hypertension; F32.A Depression, unspecified; Z86.79 Personal history of other diseases of the circulatory system; Z90.89 Acquired absence of other organs; Z79.1 Long term (current) use of non-steroidal anti-inflammatories (NSAID); Z79.899 Other long term (current) drug therapy; Z79.2 Long term (current) use of antibiotics

== ENCOUNTER → 2023-12-07 | Outpatient (CLI) | payer OTHER ==
[2023-12-07 09:14] LABS: BASO # 0.1 10^3/uL (0.0-0.2); BASO % 0.8 % (0.0-1.0); EOS # 0.3 10^3/uL (0.0-0.5); HEMATOCRIT 41.4 % (36.0-47.0); HEMOGLOBIN 13.7 g/dl (12.0-15.5); LYMPH # 2.5 10^3/uL (1.5-5.0); LYMPH % 28.6 % (24.0-44.0); MEAN CORPUSCULAR HEMOGLOBIN 31.1 pg (27.0-33.0); MEAN CORPUSCULAR HGB CONC 33.1 g/dl (32.0-36.5); MEAN CORPUSCULAR VOLUME 93.9 fl (80.0-96.0); MONO # 0.4 10^3/uL (0.0-0.8); MONO % 4.2 % (2.0-8.0); NEUTROPHILS # 5.5 10^3/uL (1.5-8.5); NEUTROPHILS % 63.2 % (36.0-66.0); PLATELET COUNT, AUTOMATED 288 10^3/uL (150-450); RED BLOOD COUNT 4.41 10^6/uL (4.00-5.40); WHITE BLOOD COUNT 8.6 10^3/uL (4.0-10.0)
[2023-12-07 09:38] LABS: BLOOD UREA NITROGEN 11 MG/DL (9-23); CARBON DIOXIDE LEVEL 28 MMOL/L (20-31); CHLORIDE LEVEL 105 MMOL/L (98-107); CREATININE FOR GFR 0.92 MG/DL (0.55-1.30); GLOMERULAR FILTRATION RATE > 60.0 (>58); GLUCOSE, FASTING 121 MG/DL (60-100); POTASSIUM SERUM 4.6 MMOL/L (3.5-5.1); SODIUM LEVEL 138 MMOL/L (136-145)
[2023-12-07 10:12] LABS: HEMOGLOBIN A1c 5.4 % (4.0-6.0)
== END ==
LOC: M LAB 08:45
PROVIDERS: ATTEND Family Medicine
DX: I10 Essential (primary) hypertension (principal)

== ENCOUNTER → 2024-07-30 | Outpatient (CLI) | payer OTHER ==
[~2024-07-30] MED LIST changes: -CYCL5TAB PO; +CYCL5TAB4 PO
[2024-07-30 13:07] LABS: HEMATOCRIT 41.7 % (36.0-47.0); HEMOGLOBIN 13.9 g/dl (12.0-15.5); MEAN CORPUSCULAR HEMOGLOBIN 30.7 pg (27.0-33.0); MEAN CORPUSCULAR HGB CONC 33.3 g/dl (32.0-36.5); MEAN CORPUSCULAR VOLUME 92.1 fl (80.0-96.0); PLATELET COUNT, AUTOMATED 287 10^3/uL (150-450); RED BLOOD COUNT 4.53 10^6/uL (4.00-5.40); WHITE BLOOD COUNT 9.6 10^3/uL (4.0-10.0)
[2024-07-30 13:20] LABS: HEMOGLOBIN A1c 5.6 % (4.0-6.0)
[2024-07-30 13:39] LABS: ALBUMIN 3.9 G/DL (3.2-5.2); BILIRUBIN,TOTAL 0.4 MG/DL (0.3-1.2); CALCIUM LEVEL 9.3 MG/DL (8.5-10.1); CREATININE FOR GFR 1.12 MG/DL (0.55-1.30); GLOMERULAR FILTRATION RATE 54.8 (>51); POTASSIUM SERUM 4.4 MMOL/L (3.5-5.1); TOTAL PROTEIN 7.2 G/DL (5.7-8.2)
[2024-07-30 13:42] LABS: THYROID STIMULATING HORMONE 1.889 uIU/ML (0.55-4.78)
== END ==
LOC: M EKG 12:07
PROVIDERS: ATTEND Physician Assistant Surgical
DX: Z01.812 Encounter for preprocedural laboratory examination (principal); E66.01 Morbid (severe) obesity due to excess calories; Z86.39 Personal history of other endocrine, nutritional and metabolic disease; K21.9 Gastro-esophageal reflux disease without esophagitis

== ENCOUNTER → 2024-08-27 | Outpatient (CLI) | payer OTHER ==
[2024-08-27 12:16] LABS: BASO # 0.1 10^3/uL (0.0-0.2); BASO % 0.8 % (0.0-1.0); EOS # 0.3 10^3/uL (0.0-0.5); EOS % 3.1 % (0.0-3.0); HEMATOCRIT 40.5 % (36.0-47.0); HEMOGLOBIN 13.2 g/dl (12.0-15.5); LYMPH # 2.3 10^3/uL (1.5-5.0); LYMPH % 26.5 % (24.0-44.0); MEAN CORPUSCULAR HEMOGLOBIN 30.4 pg (27.0-33.0); MEAN CORPUSCULAR HGB CONC 32.6 g/dl (32.0-36.5); MEAN CORPUSCULAR VOLUME 93.3 fl (80.0-96.0); MONO # 0.4 10^3/uL (0.0-0.8); MONO % 4.5 % (2.0-8.0); NEUTROPHILS # 5.7 10^3/uL (1.5-8.5); NEUTROPHILS % 64.8 % (36.0-66.0); PLATELET COUNT, AUTOMATED 289 10^3/uL (150-450); RED BLOOD COUNT 4.34 10^6/uL (4.00-5.40); WHITE BLOOD COUNT 8.8 10^3/uL (4.0-10.0)
[2024-08-27 12:35] LABS: ALBUMIN 3.7 G/DL (3.2-5.2); ALKALINE PHOSPHATASE 110 U/L (35-104); ALT/SGPT 37 U/L (7.0-40); AST/SGOT 24 U/L (<34); BILIRUBIN,TOTAL 0.3 MG/DL (0.3-1.2); BLOOD UREA NITROGEN 14 MG/DL (9-23); CALCIUM LEVEL 9.1 MG/DL (8.5-10.1); CARBON DIOXIDE LEVEL 26 MMOL/L (20-31); CHLORIDE LEVEL 108 MMOL/L (98-107); CREATININE FOR GFR 0.93 MG/DL (0.55-1.30); GLOMERULAR FILTRATION RATE > 60.0 (>51); GLUCOSE, FASTING 102 MG/DL (60-100); POTASSIUM SERUM 4.9 MMOL/L (3.5-5.1); SODIUM LEVEL 142 MMOL/L (136-145); TOTAL PROTEIN 6.9 G/DL (5.7-8.2)
== END ==
LOC: M LAB 10:46
PROVIDERS: ATTEND Physician Assistant
DX: D13.1 Benign neoplasm of stomach (principal)

== ENCOUNTER 2025-03-13 12:36 | Inpatient (IN) | payer OTHER ==
[~2025-03-13] VITALS: Ht 170.2 cm; Wt 134.8 kg
[~2025-03-13 12:36] MED LIST changes: -IBUP-1022 PO; +IBUP600T42 PO
[2025-03-13] MEDS ORDERED: AMLO1TAB25 PO (12:49)
[2025-03-13] MEDS ORDERED: PROP10TA56 PO (12:49)
[2025-03-13] MEDS ORDERED: ZONI100C67 PO (12:49)
[2025-03-13] MEDS ORDERED: FREM225A SC (12:49)
[2025-03-13] MEDS ORDERED: ISOVUE-370 76% 100 ML VIAL As Ordered ONE (15:50)
[2025-03-13 16:04] LABS: BASO # 0.1 10^3/uL (0.0-0.2); BASO % 0.7 % (0.0-1.0); EOS # 0.3 10^3/uL (0.0-0.5); EOS % 2.3 % (0.0-3.0); LYMPH # 2.6 10^3/uL (1.5-5.0); LYMPH % 23.0 % (24.0-44.0); MONO # 0.5 10^3/uL (0.0-0.8); MONO % 4.3 % (2.0-8.0); NEUTROPHILS # 7.9 10^3/uL (1.5-8.5); NEUTROPHILS % 69.3 % (36.0-66.0); PLATELET COUNT, AUTOMATED 279 10^3/uL (150-450)
[2025-03-13] MEDS: ZONISAMIDE 100MG CAP PO SCH (21:00)
[2025-03-13] MEDS ORDERED: HOME MED LIST COMPLETE! XX SCH (22:30)
[2025-03-13] MEDS ORDERED: MAALOX 30 ML SUSP *UDC PO PRN (22:40)
[2025-03-13] MEDS ORDERED: MOM 30 ML SUSPENSION UDC PO PRN (22:40)
[2025-03-13] MEDS: ASPIRIN 81 MG ENTERIC TABLET PO SCH (23:30)
[2025-03-14] VITALS (7 sets, daily range): BP systolic 130–151; BP diastolic 59–69; TEMP 96.9–97.9; O2SAT 94–100
[2025-03-14 00:25] LABS: INR 0.97
[2025-03-14 00:45] LABS: ALT/SGPT 60.0 U/L (7.0-40); AST/SGOT 33.0 U/L (<34); CALCIUM LEVEL 8.8 MG/DL (8.5-10.1); CARBON DIOXIDE LEVEL 26.0 MMOL/L (20-31); CHLORIDE LEVEL 105.0 MMOL/L (98-107); CREATININE FOR GFR 1.11 MG/DL (0.55-1.30); GLOMERULAR FILTRATION RATE 60.2 (>51); MAGNESIUM LEVEL 1.9 MG/DL (1.8-2.4); PHOSPHORUS LEVEL 3.0 MG/DL (2.5-4.9); POTASSIUM SERUM 4.0 MMOL/L (3.5-5.1); SODIUM LEVEL 137.0 MMOL/L (136-145)
[2025-03-14] MEDS: ATORVASTATIN 20 MG TAB PO SCH (08:04)
[2025-03-14] MEDS: PANTOPRAZOLE 40MG TAB PO SCH (08:04)
[2025-03-14] MEDS: HEPARIN SOD 5000 UNITS/ML 1 ML VIAL/SYRINGE SC SCH (08:05)
[2025-03-14 08:28] LABS: PLATELET COUNT, AUTOMATED 237 10^3/uL (150-450)
[2025-03-14 08:49] LABS: ALT/SGPT 63.0 U/L (7.0-40); AST/SGOT 38.0 U/L (<34); CALCIUM LEVEL 8.9 MG/DL (8.5-10.1); CARBON DIOXIDE LEVEL 27.0 MMOL/L (20-31); CHLORIDE LEVEL 105.0 MMOL/L (98-107); CHOLESTEROL LEVEL 175.0 MG/DL (<200); CHOLESTEROL RISK RATIO 3.37 (<5); CREATININE FOR GFR 0.97 MG/DL (0.55-1.30); GLOMERULAR FILTRATION RATE 70.8 (>51); LDL CHOLESTEROL 99.8 MG/DL (<100); NON-HDL-C 123.2 MG/DL; POTASSIUM SERUM 4.5 MMOL/L (3.5-5.1); SODIUM LEVEL 143.0 MMOL/L (136-145); TRIGLYCERIDES LEVEL 117.0 MG/DL (<150)
[2025-03-14 08:52] LABS: ESTIMATED AVERAGE GLUCOSE 120.0 MG/DL (60-110)
[2025-03-14] MEDS: ACETAMINOPHEN 325 MG TAB PO PRN (11:09)
[2025-03-15 03:40] VITALS: BP 123/55; TEMP 97.8; O2SAT 96
[2025-03-15 05:51] LABS: ALT/SGPT 54.0 U/L (7.0-40); AST/SGOT 30.0 U/L (<34); CALCIUM LEVEL 8.8 MG/DL (8.5-10.1); CARBON DIOXIDE LEVEL 25.0 MMOL/L (20-31); CHLORIDE LEVEL 106.0 MMOL/L (98-107); CREATININE FOR GFR 0.91 MG/DL (0.55-1.30); GLOMERULAR FILTRATION RATE 76.4 (>51); POTASSIUM SERUM 4.0 MMOL/L (3.5-5.1); SODIUM LEVEL 141.0 MMOL/L (136-145)
[2025-03-15 07:53] LABS: PLATELET COUNT, AUTOMATED 234 10^3/uL (150-450)
[2025-03-15 07:56] VITALS: BP 152/77; TEMP 97.2; O2SAT 98
[2025-03-15] MEDS: FLUZONE VACCINE TRI PF(25-26) 0.5ML SYRINGE IM.IMMUN ONE (09:00)
[2025-03-15] MEDS: CLOPIDOGREL 75 MG TAB PO SCH (10:33)
[2025-03-15 12:10] VITALS: BP 133/62; TEMP 98.2; O2SAT 98
[2025-03-15] MEDS ORDERED: CLOP75TA2 PO (14:23)
[2025-03-15] MEDS ORDERED: ASPI81TAEC PO (14:23)
[2025-03-15] MEDS ORDERED: ATOR80TA59 PO (14:23)
== END 2025-03-15 15:36 | disposition home or self-care (01) | DRG 45 ==
LOC: M ED 12:36 → M ED INP 12:37 → M PCU 03-14 00:21 → OBSVTOIN 03-14 15:14
PROVIDERS: ADMIT Student in an Organized Health Care Education/Training Program; ATTEND Internal Medicine
DX: I63.9 Cerebral infarction, unspecified (principal); I10 Essential (primary) hypertension; F32.9 Major depressive disorder, single episode, unspecified; G40.909 Epilepsy, unspecified, not intractable, without status epilepticus; I77.1 Stricture of artery; G43.909 Migraine, unspecified, not intractable, without status migrainosus; Z79.899 Other long term (current) drug therapy